=== PATIENT | male | born 1950 | race Caucasian/White ===

== ENCOUNTER 2020-06-01 21:23 | Inpatient (IN) | payer SELFPAY ==
[~2020-06-01] VITALS: Ht 177.8 cm; Wt 79.4 kg
[2020-06-01 21:45] VITALS: Ht 177.8 cm; Wt 79.4 kg
[2020-06-01 22:46] LABS: BASOPHIL % 0.6 % (0.2-1.5); PLATELET COUNT 223 x10^3mcL (152-348); RED CELL DISTRIBUTION WIDTH 14.2 % (12.1-16.2)
[2020-06-01 23:07] LABS: ALBUMIN 2.4 g/dL (3.4-5.0); ALKALINE PHOSPHATASE 89 U/L (46-116); ALT/SGPT 50 U/L (16-63); AST/SGOT 64 U/L (15-37); BILIRUBIN TOTAL 0.92 mg/dL (0.20-1.00); CALCIUM 8.3 mg/dL (8.5-10.1); CARBON DIOXIDE 24.7 mmol/L (21-32); CHLORIDE SERUM 90 mmol/L (98-107); CREATININE SERUM 1.1 mg/dL (0.7-1.3); GFR1 > 60 mL/min; GLUCOSE SERUM 129 mg/dL (74-106); LACTIC DEHYDROGENASE (LDH) 496 U/L (100-190); POTASSIUM SERUM 3.9 mmol/L (3.5-5.1); SODIUM SERUM 125 mmol/L (136-145); TOTAL PROTEIN, SERUM 6.7 g/dL (6.4-8.2)
[2020-06-01 23:10] LABS: C REACTIVE PROTEIN 33.1 mg/dL (<=0.9)
[2020-06-02] VITALS (8 sets, daily range): BP systolic 119–147; BP diastolic 66–90
[2020-06-02 01:33] LABS: microscopic required? YES; urine erythrocyte NEGATIVE (NEGATIVE)
[2020-06-02 07:56] LABS: BASOPHIL % 0.1 % (0.2-1.5); PLATELET COUNT 233 x10^3mcL (152-348)
[2020-06-02 08:22] LABS: CALCIUM 8.8 mg/dL (8.5-10.1); CARBON DIOXIDE 27.9 mmol/L (21-32); CHLORIDE SERUM 94 mmol/L (98-107); GFR1 > 60 mL/min; GLUCOSE SERUM 133 mg/dL (74-106); MAGNESIUM 1.9 mg/dL (1.8-2.4); PHOSPHOROUS 4.3 mg/dL (2.5-4.9); POTASSIUM SERUM 5.1 mmol/L (3.5-5.1); SODIUM SERUM 130 mmol/L (136-145)
[2020-06-02 10:00] LABS: BILIRUBIN DIRECT 0.29 mg/dL (0.0-0.2); BILIRUBIN TOTAL 0.64 mg/dL (0.20-1.00)
[2020-06-02 10:04] LABS: ALBUMIN 2.5 g/dL (3.4-5.0)
[2020-06-03 04:52] VITALS: BP 138/63
[2020-06-03 08:36] LABS: BILIRUBIN DIRECT 0.25 mg/dL (0.0-0.2); BILIRUBIN TOTAL 0.5 mg/dL (0.20-1.00); TOTAL PROTEIN, SERUM 6.4 g/dL (6.4-8.2)
[2020-06-03 08:37] LABS: ALBUMIN 2.5 g/dL (3.4-5.0)
[2020-06-03 09:08] VITALS: BP 123/76
[2020-06-03 11:40] LABS: BASOPHIL % 0.1 % (0.2-1.5); PLATELET COUNT 381 x10^3mcL (152-348); RED CELL DISTRIBUTION WIDTH 14.1 % (12.1-16.2)
[2020-06-03 11:45] LABS: CALCIUM 8.9 mg/dL (8.5-10.1); CARBON DIOXIDE 29.3 mmol/L (21-32); CHLORIDE SERUM 98 mmol/L (98-107); GFR1 > 60 mL/min; GLUCOSE SERUM 111 mg/dL (74-106); MAGNESIUM 1.9 mg/dL (1.8-2.4); PHOSPHOROUS 3.8 mg/dL (2.5-4.9); POTASSIUM SERUM 4.9 mmol/L (3.5-5.1); SODIUM SERUM 136 mmol/L (136-145)
[2020-06-03 12:30] VITALS: BP 125/73
[2020-06-03 16:13] VITALS: BP 109/65
[2020-06-03 20:09] VITALS: BP 139/76
[2020-06-04 05:04] VITALS: BP 124/60
[2020-06-04 07:18] VITALS: BP 128/81
[2020-06-04 08:16] LABS: BASOPHIL % 0.1 % (0.2-1.5); RED CELL DISTRIBUTION WIDTH 14.2 % (12.1-16.2)
[2020-06-04 08:33] LABS: PLATELET COUNT 416 x10^3mcL (152-348)
[2020-06-04 08:41] LABS: ALKALINE PHOSPHATASE 98 U/L (46-116); ALT/SGPT 84 U/L (16-63); AST/SGOT 65 U/L (15-37); BILIRUBIN DIRECT 0.23 mg/dL (0.0-0.2); BILIRUBIN TOTAL 0.6 mg/dL (0.20-1.00); CARBON DIOXIDE 29.5 mmol/L (21-32); CHLORIDE SERUM 98 mmol/L (98-107); CREATININE SERUM 0.9 mg/dL (0.7-1.3); GFR1 > 60 mL/min; GLUCOSE SERUM 75 mg/dL (74-106); PHOSPHOROUS 3.7 mg/dL (2.5-4.9); POTASSIUM SERUM 4.4 mmol/L (3.5-5.1); SODIUM SERUM 137 mmol/L (136-145); TOTAL PROTEIN, SERUM 6.8 g/dL (6.4-8.2)
[2020-06-04 09:08] LABS: ALBUMIN 2.5 g/dL (3.4-5.0)
[2020-06-04 12:01] VITALS: BP 140/85
[2020-06-04 16:09] VITALS: BP 129/82
[2020-06-04 21:54] VITALS: BP 112/67
[2020-06-05 05:38] VITALS: BP 126/71
[2020-06-05 07:14] VITALS: BP 127/58
[2020-06-05 07:19] LABS: BASOPHIL % 0.1 % (0.2-1.5); RED CELL DISTRIBUTION WIDTH 14.3 % (12.1-16.2)
[2020-06-05 07:34] LABS: ALKALINE PHOSPHATASE 97 U/L (46-116); ALT/SGPT 74 U/L (16-63); AST/SGOT 52 U/L (15-37); BILIRUBIN DIRECT 0.26 mg/dL (0.0-0.2); BILIRUBIN TOTAL 0.8 mg/dL (0.20-1.00); CARBON DIOXIDE 31.7 mmol/L (21-32); CHLORIDE SERUM 95 mmol/L (98-107); CREATININE SERUM 1.1 mg/dL (0.7-1.3); GFR1 > 60 mL/min; GLUCOSE SERUM 81 mg/dL (74-106); MAGNESIUM 1.9 mg/dL (1.8-2.4); PHOSPHOROUS 3.7 mg/dL (2.5-4.9); POTASSIUM SERUM 3.8 mmol/L (3.5-5.1); SODIUM SERUM 135 mmol/L (136-145)
[2020-06-05 07:59] LABS: PLATELET COUNT 437 x10^3mcL (152-348)
[2020-06-05 08:10] LABS: ALBUMIN 2.5 g/dL (3.4-5.0)
[2020-06-05 09:56] LABS: CHOLESTEROL/HDL RATIO 4.3
[2020-06-05 11:23] VITALS: BP 106/72
[2020-06-05 16:41] VITALS: BP 114/71
[2020-06-05 20:52] VITALS: BP 130/67
[2020-06-06 04:00] VITALS: BP 98/56
[2020-06-06 07:48] LABS: BASOPHIL % 0.1 % (0.2-1.5); CALCIUM 9.3 mg/dL (8.5-10.1); CARBON DIOXIDE 32.3 mmol/L (21-32); CHLORIDE SERUM 94 mmol/L (98-107); GFR1 > 60 mL/min; GLUCOSE SERUM 87 mg/dL (74-106); MAGNESIUM 2.4 mg/dL (1.8-2.4); PHOSPHOROUS 3.5 mg/dL (2.5-4.9); POTASSIUM SERUM 4.3 mmol/L (3.5-5.1); RED CELL DISTRIBUTION WIDTH 14.4 % (12.1-16.2); SODIUM SERUM 133 mmol/L (136-145)
[2020-06-06 08:10] LABS: BILIRUBIN DIRECT 0.37 mg/dL (0.0-0.2); BILIRUBIN TOTAL 0.94 mg/dL (0.20-1.00); TOTAL PROTEIN, SERUM 7.4 g/dL (6.4-8.2)
[2020-06-06 08:11] LABS: ALBUMIN 2.6 g/dL (3.4-5.0)
[2020-06-06 08:36] VITALS: BP 98/62
[2020-06-06 08:39] LABS: PLATELET COUNT 515 x10^3mcL (152-348)
[2020-06-06 11:49] VITALS: BP 107/66
[2020-06-06 17:15] VITALS: BP 115/67
[2020-06-06 21:09] VITALS: BP 112/72
[2020-06-07 05:15] VITALS: BP 113/74
[2020-06-07 08:17] VITALS: BP 116/63
[2020-06-07 10:43] LABS: BASOPHIL % 0.1 % (0.2-1.5); RED CELL DISTRIBUTION WIDTH 14.3 % (12.1-16.2)
[2020-06-07 10:52] LABS: CALCIUM 9.3 mg/dL (8.5-10.1); CARBON DIOXIDE 33.8 mmol/L (21-32); CHLORIDE SERUM 96 mmol/L (98-107); CREATININE SERUM 1.2 mg/dL (0.7-1.3); GFR1 > 60 mL/min; GLUCOSE SERUM 115 mg/dL (74-106); POTASSIUM SERUM 4.1 mmol/L (3.5-5.1); SODIUM SERUM 134 mmol/L (136-145)
[2020-06-07 13:16] VITALS: BP 111/70
[2020-06-07 13:26] LABS: PLATELET COUNT 521 x10^3mcL (152-348)
[2020-06-07 16:15] VITALS: BP 124/67
[2020-06-08 07:48] LABS: BASOPHIL % 0.2 % (0.2-1.5); RED CELL DISTRIBUTION WIDTH 14.1 % (12.1-16.2)
[2020-06-08 08:03] LABS: PLATELET COUNT 517 x10^3mcL (152-348)
[2020-06-08 08:05] LABS: CALCIUM 9.5 mg/dL (8.5-10.1); CARBON DIOXIDE 34.2 mmol/L (21-32); CHLORIDE SERUM 95 mmol/L (98-107); CREATININE SERUM 1.1 mg/dL (0.7-1.3); GFR1 > 60 mL/min; GLUCOSE SERUM 95 mg/dL (74-106); POTASSIUM SERUM 3.9 mmol/L (3.5-5.1); SODIUM SERUM 136 mmol/L (136-145)
[2020-06-08 08:25] VITALS: BP 110/64
[2020-06-08 13:41] VITALS: BP 103/52
[2020-06-08 18:20] VITALS: BP 105/59
[2020-06-08 20:05] VITALS: BP 104/64
[2020-06-09 04:31] VITALS: BP 120/71
[2020-06-09 09:21] VITALS: BP 117/77
[2020-06-09 09:31] LABS: BASOPHIL % 0.2 % (0.2-1.5); RED CELL DISTRIBUTION WIDTH 13.9 % (12.1-16.2)
[2020-06-09 10:01] LABS: CALCIUM 9.4 mg/dL (8.5-10.1); CARBON DIOXIDE 32.6 mmol/L (21-32); CHLORIDE SERUM 93 mmol/L (98-107); CREATININE SERUM 0.9 mg/dL (0.7-1.3); GFR1 > 60 mL/min; GLUCOSE SERUM 84 mg/dL (74-106); PHOSPHOROUS 3.3 mg/dL (2.5-4.9); POTASSIUM SERUM 3.4 mmol/L (3.5-5.1); SODIUM SERUM 134 mmol/L (136-145)
[2020-06-09 10:11] LABS: PLATELET COUNT 524 x10^3mcL (152-348)
[2020-06-09 12:00] VITALS: BP 105/65
[2020-06-10 00:44] VITALS: BP 97/69
[2020-06-10 05:37] VITALS: BP 104/67
[2020-06-10 08:02] LABS: BASOPHIL % 0.1 % (0.2-1.5); RED CELL DISTRIBUTION WIDTH 13.6 % (12.1-16.2)
[2020-06-10 08:17] LABS: CALCIUM 9.3 mg/dL (8.5-10.1); CARBON DIOXIDE 35.4 mmol/L (21-32); CHLORIDE SERUM 91 mmol/L (98-107); GFR1 > 60 mL/min; GLUCOSE SERUM 81 mg/dL (74-106); MAGNESIUM 2.1 mg/dL (1.8-2.4); PHOSPHOROUS 3.1 mg/dL (2.5-4.9); POTASSIUM SERUM 3.6 mmol/L (3.5-5.1); SODIUM SERUM 132 mmol/L (136-145)
[2020-06-10 08:50] VITALS: BP 94/62; BP 94/65
[2020-06-10 09:01] LABS: PLATELET COUNT 501 x10^3mcL (152-348)
[2020-06-10 12:49] VITALS: BP 92/61
[2020-06-10 17:16] VITALS: BP 126/77
[2020-06-10 21:22] VITALS: BP 101/68
[2020-06-11 05:25] VITALS: BP 94/58
[2020-06-11 07:35] LABS: BASOPHIL % 0.2 % (0.2-1.5); RED CELL DISTRIBUTION WIDTH 13.9 % (12.1-16.2)
[2020-06-11 07:53] LABS: PLATELET COUNT 490 x10^3mcL (152-348)
[2020-06-11 08:06] LABS: CALCIUM 8.8 mg/dL (8.5-10.1); CARBON DIOXIDE 33.6 mmol/L (21-32); CHLORIDE SERUM 90 mmol/L (98-107); CREATININE SERUM 1.1 mg/dL (0.7-1.3); GFR1 > 60 mL/min; GLUCOSE SERUM 84 mg/dL (74-106); POTASSIUM SERUM 3.8 mmol/L (3.5-5.1); SODIUM SERUM 130 mmol/L (136-145)
[2020-06-11 08:24] LABS: PHOSPHOROUS 3.6 mg/dL (2.5-4.9)
[2020-06-11 08:55] VITALS: BP 106/73
[2020-06-11 12:13] VITALS: BP 101/66
[2020-06-11 16:26] VITALS: BP 101/67
[2020-06-12 06:12] VITALS: BP 93/66
[2020-06-12 07:49] LABS: BASOPHIL % 0.2 % (0.2-1.5); RED CELL DISTRIBUTION WIDTH 13.9 % (12.1-16.2)
[2020-06-12 07:50] LABS: PLATELET COUNT 437 x10^3mcL (152-348)
[2020-06-12 08:22] LABS: C REACTIVE PROTEIN 3.2 mg/dL (<=0.9); CALCIUM 8.7 mg/dL (8.5-10.1); CARBON DIOXIDE 34.7 mmol/L (21-32); CHLORIDE SERUM 93 mmol/L (98-107); GFR1 > 60 mL/min; GLUCOSE SERUM 92 mg/dL (74-106); PHOSPHOROUS 3.4 mg/dL (2.5-4.9); POTASSIUM SERUM 3.2 mmol/L (3.5-5.1); SODIUM SERUM 132 mmol/L (136-145)
[2020-06-12 09:08] VITALS: BP 107/68
[2020-06-12 12:26] VITALS: BP 94/64
[2020-06-12 12:50] VITALS: BP 106/70
[2020-06-12 16:42] VITALS: BP 104/69
[2020-06-12 21:50] VITALS: BP 102/65
[2020-06-13 05:06] VITALS: BP 111/69
[2020-06-13 07:31] LABS: BASOPHIL % 0.5 % (0.2-1.5)
[2020-06-13 08:11] LABS: CARBON DIOXIDE 37.1 mmol/L (21-32); CHLORIDE SERUM 93 mmol/L (98-107); GFR1 > 60 mL/min; GLUCOSE SERUM 128 mg/dL (74-106); MAGNESIUM 2.2 mg/dL (1.8-2.4); PHOSPHOROUS 4.4 mg/dL (2.5-4.9); POTASSIUM SERUM 4.5 mmol/L (3.5-5.1); SODIUM SERUM 132 mmol/L (136-145)
[2020-06-13 08:54] LABS: PLATELET COUNT 429 x10^3mcL (152-348)
[2020-06-13 09:05] VITALS: BP 109/62
[2020-06-13 12:54] VITALS: BP 103/63
[2020-06-13 16:44] VITALS: BP 111/69
[2020-06-13 21:00] VITALS: BP 105/64
[2020-06-14 05:36] VITALS: BP 112/68
[2020-06-14 08:15] LABS: BASOPHIL % 0.1 % (0.2-1.5); RED CELL DISTRIBUTION WIDTH 13.7 % (12.1-16.2)
[2020-06-14 08:32] LABS: PLATELET COUNT 433 x10^3mcL (152-348)
[2020-06-14 08:42] LABS: CALCIUM 9.6 mg/dL (8.5-10.1); CARBON DIOXIDE 37.6 mmol/L (21-32); CHLORIDE SERUM 93 mmol/L (98-107); GFR1 > 60 mL/min; GLUCOSE SERUM 100 mg/dL (74-106); MAGNESIUM 2.2 mg/dL (1.8-2.4); PHOSPHOROUS 3.6 mg/dL (2.5-4.9); POTASSIUM SERUM 4.6 mmol/L (3.5-5.1); SODIUM SERUM 134 mmol/L (136-145)
[2020-06-14 08:55] VITALS: BP 104/65
[2020-06-14 12:27] VITALS: BP 104/65
[2020-06-14 17:17] VITALS: BP 106/72
[2020-06-14 21:59] VITALS: BP 110/68
[2020-06-15 06:30] VITALS: BP 118/78
[2020-06-15 09:19] LABS: BASOPHIL % 0.3 % (0.2-1.5); PLATELET COUNT 337 x10^3mcL (152-348); RED CELL DISTRIBUTION WIDTH 13.6 % (12.1-16.2)
[2020-06-15 09:32] LABS: CALCIUM 9.1 mg/dL (8.5-10.1); CARBON DIOXIDE 34.7 mmol/L (21-32); CHLORIDE SERUM 93 mmol/L (98-107); CREATININE SERUM 0.8 mg/dL (0.7-1.3); GFR1 > 60 mL/min; GLUCOSE SERUM 72 mg/dL (74-106); POTASSIUM SERUM 3.9 mmol/L (3.5-5.1); SODIUM SERUM 133 mmol/L (136-145)
[2020-06-15 12:30] VITALS: BP 96/61
[2020-06-15 16:49] VITALS: BP 114/71
[2020-06-15 21:53] VITALS: BP 112/74
[2020-06-16 05:47] VITALS: BP 111/71
[2020-06-16 08:11] LABS: BASOPHIL % 0.1 % (0.2-1.5); PLATELET COUNT 360 x10^3mcL (152-348); RED CELL DISTRIBUTION WIDTH 13.7 % (12.1-16.2)
[2020-06-16 08:28] LABS: C REACTIVE PROTEIN 0.8 mg/dL (<=0.9); CALCIUM 9.1 mg/dL (8.5-10.1); CARBON DIOXIDE 38.8 mmol/L (21-32); CHLORIDE SERUM 91 mmol/L (98-107); GFR1 > 60 mL/min; GLUCOSE SERUM 88 mg/dL (74-106); MAGNESIUM 2.2 mg/dL (1.8-2.4); PHOSPHOROUS 3.2 mg/dL (2.5-4.9); POTASSIUM SERUM 3.5 mmol/L (3.5-5.1); SODIUM SERUM 132 mmol/L (136-145)
[2020-06-16 09:30] VITALS: BP 105/69
[2020-06-16 12:40] LABS: ERYTHROCYTE SED RATE 31 mm/hr (0-20)
[2020-06-16 12:47] VITALS: BP 111/69
[2020-06-16 18:10] VITALS: BP 152/92
[2020-06-16 20:33] VITALS: BP 112/79
[2020-06-17 04:30] VITALS: BP 115/80
[2020-06-17 07:09] LABS: BASOPHIL % 0.2 % (0.2-1.5); PLATELET COUNT 370 x10^3mcL (152-348); RED CELL DISTRIBUTION WIDTH 13.7 % (12.1-16.2)
[2020-06-17 08:35] LABS: CALCIUM 9.5 mg/dL (8.5-10.1); CARBON DIOXIDE 35.8 mmol/L (21-32); CHLORIDE SERUM 93 mmol/L (98-107); CREATININE SERUM 1.1 mg/dL (0.7-1.3); GFR1 > 60 mL/min; GLUCOSE SERUM 93 mg/dL (74-106); MAGNESIUM 2.4 mg/dL (1.8-2.4); PHOSPHOROUS 3.5 mg/dL (2.5-4.9); SODIUM SERUM 135 mmol/L (136-145)
[2020-06-17 08:48] VITALS: BP 114/68
[2020-06-17 12:05] VITALS: BP 113/72
[2020-06-17 16:32] VITALS: BP 98/64
[2020-06-17 21:30] VITALS: BP 113/75
[2020-06-18 05:25] VITALS: BP 115/77
[2020-06-18 06:29] LABS: CALCIUM 9.2 mg/dL (8.5-10.1); CARBON DIOXIDE 34.1 mmol/L (21-32); CHLORIDE SERUM 93 mmol/L (98-107); GFR1 > 60 mL/min; GLUCOSE SERUM 90 mg/dL (74-106); MAGNESIUM 2.1 mg/dL (1.8-2.4); PHOSPHOROUS 3.4 mg/dL (2.5-4.9); POTASSIUM SERUM 3.5 mmol/L (3.5-5.1); SODIUM SERUM 133 mmol/L (136-145)
[2020-06-18 06:42] LABS: BASOPHIL % 0.1 % (0.2-1.5); PLATELET COUNT 335 x10^3mcL (152-348); RED CELL DISTRIBUTION WIDTH 13.8 % (12.1-16.2)
[2020-06-18 08:56] VITALS: BP 125/79
[2020-06-18 12:09] VITALS: BP 123/77
[2020-06-18 16:21] VITALS: BP 106/67
[2020-06-18 22:21] VITALS: BP 108/76
[2020-06-19 06:08] VITALS: BP 105/69
[2020-06-19 07:48] LABS: BASOPHIL % 0.3 % (0.2-1.5); PLATELET COUNT 306 x10^3mcL (152-348); RED CELL DISTRIBUTION WIDTH 13.7 % (12.1-16.2)
[2020-06-19 08:50] LABS: CALCIUM 9.7 mg/dL (8.5-10.1); CARBON DIOXIDE 34.4 mmol/L (21-32); CHLORIDE SERUM 94 mmol/L (98-107); CREATININE SERUM 0.9 mg/dL (0.7-1.3); GFR1 > 60 mL/min; GLUCOSE SERUM 94 mg/dL (74-106); MAGNESIUM 2.4 mg/dL (1.8-2.4); PHOSPHOROUS 3.6 mg/dL (2.5-4.9); POTASSIUM SERUM 3.5 mmol/L (3.5-5.1); SODIUM SERUM 130 mmol/L (136-145)
[2020-06-19 09:01] VITALS: BP 116/61
[2020-06-19 13:03] VITALS: BP 106/68
[2020-06-19 17:27] VITALS: BP 106/71
[2020-06-19 21:21] VITALS: BP 109/60
[2020-06-20 04:38] VITALS: BP 119/77
[2020-06-20 04:42] VITALS: BP 119/77; BP 146/60
[2020-06-20 06:46] LABS: BASOPHIL % 0.1 % (0.2-1.5); PLATELET COUNT 287 x10^3mcL (152-348); RED CELL DISTRIBUTION WIDTH 14.2 % (12.1-16.2)
[2020-06-20 07:20] LABS: CARBON DIOXIDE 38.5 mmol/L (21-32); CHLORIDE SERUM 94 mmol/L (98-107); CREATININE SERUM 1.2 mg/dL (0.7-1.3); GFR1 > 60 mL/min; GLUCOSE SERUM 84 mg/dL (74-106); MAGNESIUM 2.2 mg/dL (1.8-2.4); PHOSPHOROUS 2.9 mg/dL (2.5-4.9); POTASSIUM SERUM 4.2 mmol/L (3.5-5.1); SODIUM SERUM 132 mmol/L (136-145)
[2020-06-20 08:58] VITALS: BP 99/63
[2020-06-20 12:14] VITALS: BP 95/66
[2020-06-20] MEDS ORDERED: DIFLUCAN100 MG PO (13:10)
[2020-06-20] MEDS ORDERED: ZINC SULFATE220 MG PO (13:19)
[2020-06-20] MEDS ORDERED: [UNRECOGNIZED DRUG - OTHER] TOP (13:19)
[2020-06-20] MEDS ORDERED: MUCINEX600 MG PO (13:19)
[2020-06-20] MEDS ORDERED: CEPACOL SORE TH1 LO4 MM (13:19)
[2020-06-20] MEDS ORDERED: LEADER MELATONIN5 MG PO (13:19)
[2020-06-20] MEDS ORDERED: VITC PO (13:19)
[2020-06-20] MEDS ORDERED: VITAMIN D325 MC1 PO (13:19)
[2020-06-20 16:45] VITALS: BP 106/67
[2020-06-20 19:40] VITALS: BP 114/65
[2020-06-21 05:06] VITALS: BP 113/78
[2020-06-21 07:11] LABS: BASOPHIL % 0.1 % (0.2-1.5); PLATELET COUNT 326 x10^3mcL (152-348); RED CELL DISTRIBUTION WIDTH 14.1 % (12.1-16.2)
[2020-06-21 07:59] LABS: ALBUMIN 3.2 g/dL (3.4-5.0); ALKALINE PHOSPHATASE 98 U/L (46-116); ALT/SGPT 151 U/L (16-63); AST/SGOT 35 U/L (15-37); BILIRUBIN TOTAL 0.59 mg/dL (0.20-1.00); CALCIUM 9.4 mg/dL (8.5-10.1); CARBON DIOXIDE 36.7 mmol/L (21-32); CHLORIDE SERUM 93 mmol/L (98-107); GFR1 > 60 mL/min; GLUCOSE SERUM 97 mg/dL (74-106); MAGNESIUM 2.2 mg/dL (1.8-2.4); PHOSPHOROUS 2.7 mg/dL (2.5-4.9); POTASSIUM SERUM 4.4 mmol/L (3.5-5.1); SODIUM SERUM 132 mmol/L (136-145); TOTAL PROTEIN, SERUM 7.4 g/dL (6.4-8.2)
[2020-06-21 09:55] VITALS: BP 141/75
[2020-06-21 13:03] VITALS: BP 102/58
[2020-06-21 16:47] VITALS: BP 101/71
[2020-06-21 21:06] VITALS: BP 101/45
[2020-06-22 05:38] VITALS: BP 96/74
[2020-06-22 07:06] LABS: BASOPHIL % 0.4 % (0.2-1.5); PLATELET COUNT 302 x10^3mcL (152-348); RED CELL DISTRIBUTION WIDTH 13.9 % (12.1-16.2)
[2020-06-22 07:29] LABS: ALKALINE PHOSPHATASE 93 U/L (46-116); ALT/SGPT 127 U/L (16-63); AST/SGOT 38 U/L (15-37); BILIRUBIN TOTAL 0.6 mg/dL (0.20-1.00); CALCIUM 8.7 mg/dL (8.5-10.1); CARBON DIOXIDE 34.7 mmol/L (21-32); CHLORIDE SERUM 91 mmol/L (98-107); GFR1 > 60 mL/min; GLUCOSE SERUM 82 mg/dL (74-106); MAGNESIUM 2.1 mg/dL (1.8-2.4); PHOSPHOROUS 3.5 mg/dL (2.5-4.9); SODIUM SERUM 126 mmol/L (136-145); TOTAL PROTEIN, SERUM 6.6 g/dL (6.4-8.2)
[2020-06-22 07:33] LABS: ALBUMIN 2.9 g/dL (3.4-5.0)
[2020-06-22 09:02] VITALS: BP 105/64
[2020-06-22 12:17] VITALS: BP 109/70
[2020-06-22 16:40] VITALS: BP 110/72
[2020-06-22 20:29] VITALS: BP 105/73
[2020-06-23 05:28] VITALS: BP 101/66
[2020-06-23 05:28] LABS: BASOPHIL % 0.9 % (0.2-1.5); PLATELET COUNT 278 x10^3mcL (152-348); RED CELL DISTRIBUTION WIDTH 14.2 % (12.1-16.2)
[2020-06-23 05:39] LABS: CALCIUM 9.2 mg/dL (8.5-10.1); CARBON DIOXIDE 37.4 mmol/L (21-32); CHLORIDE SERUM 97 mmol/L (98-107); CREATININE SERUM 1.1 mg/dL (0.7-1.3); GFR1 > 60 mL/min; GLUCOSE SERUM 98 mg/dL (74-106); MAGNESIUM 2.1 mg/dL (1.8-2.4); PHOSPHOROUS 3.3 mg/dL (2.5-4.9); SODIUM SERUM 134 mmol/L (136-145)
[2020-06-23 08:45] VITALS: BP 105/47
[2020-06-23 13:16] VITALS: BP 112/82
[2020-06-23 17:32] VITALS: BP 109/65
[2020-06-23 21:10] VITALS: BP 99/61
[2020-06-24 05:41] VITALS: BP 117/73
[2020-06-24 07:26] LABS: BASOPHIL % 0.4 % (0.2-1.5); PLATELET COUNT 275 x10^3mcL (152-348); RED CELL DISTRIBUTION WIDTH 14.2 % (12.1-16.2)
[2020-06-24 07:44] LABS: CALCIUM 8.4 mg/dL (8.5-10.1); CARBON DIOXIDE 38.9 mmol/L (21-32); CHLORIDE SERUM 95 mmol/L (98-107); GFR1 > 60 mL/min; GLUCOSE SERUM 90 mg/dL (74-106); MAGNESIUM 2.1 mg/dL (1.8-2.4); POTASSIUM SERUM 4.2 mmol/L (3.5-5.1); SODIUM SERUM 135 mmol/L (136-145)
[2020-06-24 08:40] VITALS: BP 104/65
[2020-06-24 12:48] VITALS: BP 123/76
[2020-06-24 18:31] VITALS: BP 109/75
[2020-06-24 20:17] VITALS: BP 111/75
[2020-06-25 04:43] VITALS: BP 106/70
[2020-06-25 07:44] LABS: BASOPHIL % 0.5 % (0.2-1.5); PLATELET COUNT 234 x10^3mcL (152-348); RED CELL DISTRIBUTION WIDTH 14.4 % (12.1-16.2)
[2020-06-25 08:15] LABS: CALCIUM 8.5 mg/dL (8.5-10.1); CARBON DIOXIDE 32.6 mmol/L (21-32); CHLORIDE SERUM 95 mmol/L (98-107); CREATININE SERUM 0.8 mg/dL (0.7-1.3); GFR1 > 60 mL/min; GLUCOSE SERUM 90 mg/dL (74-106); MAGNESIUM 1.9 mg/dL (1.8-2.4); POTASSIUM SERUM 3.7 mmol/L (3.5-5.1); SODIUM SERUM 131 mmol/L (136-145)
[2020-06-25 10:11] VITALS: BP 121/75
[2020-06-25 13:39] VITALS: BP 99/64
[2020-06-25 16:00] VITALS: BP 109/68
[2020-06-25 20:14] VITALS: BP 104/73
[2020-06-26 05:58] VITALS: BP 118/78
[2020-06-26 08:32] VITALS: BP 107/74
[2020-06-26 12:24] VITALS: BP 117/79
[2020-06-26 13:54] VITALS: BP 117/79
[2020-06-26] MEDS ORDERED: ZINC SULFATE220 MG PO (17:05)
[2020-06-26] MEDS ORDERED: MUCINEX600 MG PO (17:05)
[2020-06-26] MEDS ORDERED: LEADER MELATONIN5 MG PO (17:05)
[2020-06-26] MEDS ORDERED: [UNRECOGNIZED DRUG - OTHER] TOP (17:05)
[2020-06-26] MEDS ORDERED: DIFLUCAN100 MG PO (17:05)
[2020-06-26] MEDS ORDERED: CEPACOL SORE TH1 LO4 MM (17:05)
[2020-06-26] MEDS ORDERED: VITAMIN D325 MC1 PO (17:05)
[2020-06-26] MEDS ORDERED: VITC PO (17:05)
== END 2020-06-26 15:00 | disposition home or self-care (01) | DRG 871 ==
LOC: ED 21:23 → DU 22:54 → MU 06-19 06:32 → DU 06-23 16:52
PROVIDERS: Emergency Medicine; Family Medicine; Internal Medicine; ADMIT Internal Medicine; ATTEND Internal Medicine
PROC: XW033E5 Introduction of Remdesivir Anti-infective into Peripheral Vein, Percutaneous Approach, New Technology Group 5 (ICD-10-PCS; principal; 2020-06-02)
PROC: XW13325 Transfusion of Convalescent Plasma (Nonautologous) into Peripheral Vein, Percutaneous Approach, New Technology Group 5 (ICD-10-PCS; 2020-06-03)
PROC: 02HV33Z Insertion of Infusion Device into Superior Vena Cava, Percutaneous Approach (ICD-10-PCS; 2020-06-03)
PROC: B548ZZA Ultrasonography of Superior Vena Cava, Guidance (ICD-10-PCS; 2020-06-03)
DX: A41.89 Other specified sepsis (principal); U07.1 COVID-19; J12.82 Pneumonia due to coronavirus disease 2019; J96.01 Acute respiratory failure with hypoxia; G93.41 Metabolic encephalopathy; B37.0 Candidal stomatitis; E22.2 Syndrome of inappropriate secretion of antidiuretic hormone; R74.01 Elevation of levels of liver transaminase levels; D72.829 Elevated white blood cell count, unspecified; T38.0X5A Adverse effect of glucocorticoids and synthetic analogues, initial encounter; E87.8 Other disorders of electrolyte and fluid balance, not elsewhere classified; D47.3 Essential (hemorrhagic) thrombocythemia; E86.0 Dehydration
CPT/HCPCS: 36600; 83880; 85378; 87804; 94150; 97110-GP; 97116-GP; 97530-GP; G0378; J0132; J0456; J0696; J1100; J1644; J1650; J1940; J2060; J2405; J2920; J3480; J7040; J7050; J7060; Q9967; U0003